=== PATIENT | male | born 1990 | race Caucasian/White ===

== ENCOUNTER 2019-01-30 12:21 | Day surgery (SDC) | payer OTHER ==
[2019-01-30] MEDS ORDERED: MIDAZOLAM 1 MG/ML 2 ML INJ ×2 (14:55)
[2019-01-30] MEDS ORDERED: FENTAnyl 50 MCG/ML VIAL (14:55)
== END 2019-01-30 17:05 | disposition home or self-care (01) ==
LOC: GIL 12:21
DX: K29.50 Unspecified chronic gastritis without bleeding (principal)
CPT/HCPCS: 43239; 88305; 88312